=== PATIENT | female | born 1990 | race African-American/Black ===

== ENCOUNTER 2025-06-16 14:49 | Emergency (ER) | payer SELFPAY ==
[2025-06-16] MEDS ORDERED: Ketorolac Tromethamine 30 MG (1 mL) VIAL ONE (15:06)
== END 2025-06-16 16:45 | disposition home or self-care (01) ==
LOC: ERS 14:49
DX: M25.561 Pain in right knee (principal); X58.XXXA Exposure to other specified factors, initial encounter; Y93.6A Activity, physical games generally associated with school recess, summer camp and children
CPT/HCPCS: 96372; 99283; J1885